=== PATIENT | male | born 1970 | race Caucasian/White ===

== ENCOUNTER 2025-01-18 12:46 | Emergency (ER) | payer OTHER, SELFPAY ==
[2025-01-18 12:48] VITALS: BP 140/70; PULSE 81; TEMP 36.9; O2SAT 95; BMI 24.4
--- NOTE | 2025-01-18 12:55 | XR_ITS ---
The [address] [address] Patient Name: HADLEY US MRN: [id number] date: 1970 Sex: M Assigned Patient Location: ED.MAIN Current Patient Location: ED.MAIN Accession/Order Number: [id number] Exam Date: 01/18/2025 13:19 Report Date: 01/18/2025 13:20 At the request of: TESS GUTIERREZ MD Procedure: XR hand LT min 3V 3 views left hand plain film COMPARISON: None HISTORY: Left thumb injury ACUTE FINDINGS: None DEGENERATIVE CHANGE: Unremarkable SOFT TISSUE FINDINGS: Unremarkable JOINT EFFUSION: None POSTOP CHANGES: None BONY MINERALIZATION: Adequate XR/XR hand LT min 3V IMPRESSION: No acute findings Impression dictated by: Kristopher Goldsmith M.D. 01/18/2025 1:20 PM Dictation Location: [place] [address] Electronically authenticated by: [id number] Y Date: 01/18/2025 13:20
--- NOTE | 2025-01-18 17:09 | ED.UPPEXIN1 ---
HPI HPI - Extremity Injury (Upper) General Chief Complaint: Extremity Injury, Upper Stated Complaint: DISLOCATED THUMB Time Seen by Provider: 01/18/25 12:55 Source: patient Mode of arrival: walk-in Limitations: no limitations History of Present Illness HPI narrative: The patient is coming to the ER with a left thumb injury that he obtained over the last week, he apparently mentioned that he was doing some work at home when he feels that he had dislocated his left thumb but it went back in place but every time he moves the thumb of a feel that it is getting out of its place and he have to put it back to normal Related Data Previous Rx's ?Medication ?Instructions ?Recorded ibuprofen 600 mg tablet 600 mg PO Q8H PRN pain #20 tabs 01/18/25 Allergies Allergy/AdvReac Type Severity Reaction Status Date / Time No Known Drug Allergies Allergy Verified 01/18/25 12:51 Opioid HPI Opioid Management Most Recent Pain and Opioid Data: Last Pain Scale 7 Today, 12:53 Review of Systems ROS Status of ROS 10 or more systems reviewed and unremarkable except as noted in history and below PFSH PFSH Social History Little interest or pleasure in doing things: not at all Feeling down, depressed, or hopeless: not at all Exam Narrative Exam Narrative: Nurses notes and vital signs reviewed and patient is not hypoxic. General: Well-appearing and in no apparent distress. Skin: Warm, dry, no pallor noted. No rash. Head: Normocephalic, atraumatic. Left upper extremity: Patient have tenderness upon palpation of the first metacarpal phalangeal joint in addition to the patient have full range of movement with pain, no obvious deformity and no vascular injury Constitutional Vital Signs, click to edit/add: Last Vital Signs Temp 98.5 F 01/18/25 12:48 Pulse 81 01/18/25 12:48 Resp 16 01/18/25 12:48 BP 140/70 01/18/25 12:48 Pulse Ox 95 01/18/25 12:48 O2 Del Method Room Air 01/18/25 12:48 Course Vital Signs Vital signs: Vital Signs Temperature 98.5 F 01/18/25 12:48 Pulse Rate 81 01/18/25 12:48 Respiratory Rate 16 01/18/25 12:48 Blood Pressure 140/70 01/18/25 12:48 Pulse Oximetry 95 01/18/25 12:48 Oxygen Delivery Method Room Air 01/18/25 12:48 Temperature 98.5 F 01/18/25 12:48 Pulse Rate 81 01/18/25 12:48 Respiratory Rate 16 01/18/25 12:48 Blood Pressure 140/70 01/18/25 12:48 Pulse Oximetry 95 01/18/25 12:48 Oxygen Delivery Method Room Air 01/18/25 12:48 MDM - Extremity Injury (Upper) MDM Narrative Medical decision making narrative: The patient x-ray of the left hand showed no acute pathology Patient placed in a thumb splint and instructed about resting the hand for the next week in addition to follow-up with orthopedic as outpatient The patient is to follow up with primary care physician in next 2-3 days or to return to the emergency department should any of the signs or symptoms worsen or new symptoms develop. The patient agrees with the following Diagnosis and Treatment plan and the patient will be discharged home. Discharge Plan Discharge Chief Complaint: Extremity Injury, Upper Clinical Impression: Left thumb sprain Patient Disposition: Home, Self-Care Time of Disposition Decision: 13:59 Condition: Good Mode of Transportation: Private Vehicle Prescriptions / Home Meds: New ibuprofen 600 mg tablet 600 mg PO Q8H PRN (Reason: pain) Qty: 20 0RF Print Language: Gabonese Instructions: Finger Sprain (ED) Referrals: Physician,Non-Staff, [Primary Care Provider] - 1 week Thad Guadalupe MD [Physician, Orthopedics] - 1 week Discharge Date/Time: 01/18/25 14:06
== END 2025-01-18 14:06 | disposition home or self-care (01) ==
PROVIDERS: Emergency Provider Emergency Medicine; Family Provider Family Medicine
DX: S63.602A Unspecified sprain of left thumb, initial encounter (principal); X58.XXXA Exposure to other specified factors, initial encounter
CPT/HCPCS: 73130; 99283